=== PATIENT | female | born 1950 | race Caucasian/White ===

== ENCOUNTER 2021-04-16 06:53 | Day surgery (SDC) | payer BC, MEDICARE ==
[~2021-04-16 06:53] MED LIST: Sodium Chloride 0.9% 10 ML Syringe FLUSH PRN
[2021-04-16] MEDS ORDERED: Propofol 200 MG/20 ML SDV IV ONE (06:54)
[2021-04-16] MEDS ORDERED: Lidocaine 2% 5 ML SDV INJECT ONE (06:54)
[2021-04-16] MEDS: Lactated Ringers 1,000 ML IV SCH (07:30)
--- NOTE | 2021-04-16 08:40 | PCM.HPR ---
H & P Addendum review - H & P Addendum Review Date of Original H & P: 04/09/21 Date Reviewed: 04/16/21 Time Reviewed: 07:50 Patient was Examined: No Changes
--- NOTE | 2021-04-16 08:42 | PCM.OPNOTE ---
- General Post-Op/Procedure Note Date of Surgery/Procedure: 04/16/21 Operative Procedure(s): EGD with Bx. Colonoscopy with bx Findings: Distal Esophagitis Pre Op Diagnosis: Abd pain, diarrhea Post-Op Diagnosis: Same Anesthesia Technique: MAC Primary Surgeon: Kevin Ba Anesthesia Provider: April Lau Complications: None Condition: Good
--- NOTE | 2021-04-16 11:13 | OR ---
DATE OF OPERATION: 04/16/2021 SURGEON: Kevin Ba MD PREOPERATIVE DIAGNOSES: 1. Epigastric abdominal pain. 2. Change in bowel habits with diarrhea. POSTOPERATIVE DIAGNOSES: 1. Distal esophagitis. 2. Normal colonoscopy. PROCEDURES: 1. Esophagogastroduodenoscopy with biopsies. 2. Colonoscopy with biopsies. ANESTHESIA: IV sedation. DESCRIPTION OF PROCEDURE: The patient was brought to the procedure room where she was placed on her left side and IV sedation administered. Oral bite block was placed and the upper endoscope advanced into the esophagus under direct vision without difficulty. Vocal cords were viewed and were normal. Scope was advanced to the third portion of the duodenum. Duodenum and pylorus were normal. Antrum and body of the stomach were normal. Retroflexion reveals a normal-appearing fundus. Squamocolumnar junction is irregular with evidence of distal esophagitis with some superficial erosions. The lower esophageal sphincter is weak which is contributing to her reflux. I did take 4-quadrant biopsies from the first portion of the duodenum to check for celiac disease. Because of her symptoms, I also took 2 biopsies from the antrum. Lastly, I took biopsies from the distal esophagus. Air was removed from the stomach and the scope withdrawn through the remaining esophagus which appeared normal. The patient tolerated this portion of the procedure well. Next, colonoscopy was performed after digital rectal exam was done which was normal. Colonoscope was inserted and advanced to the level of the cecum with minimal difficulty getting around the hepatic flexure requiring some pressure on the abdomen. I was able to reach the cecum which was confirmed by identifying the appendiceal lumen and ileocecal valve. Prep was good and surfaces were well visualized. Upon withdrawing the scope, all segments of the colon and rectum appeared normal. There was no evidence of colitis or other abnormalities. I did take random biopsies from all segments of the colon to check for microscopic colitis. Air was removed and the scope withdrawn. The patient tolerated the procedure well and returned to recovery in stable condition. The patient will follow up with Mary Emery for review of biopsies and ongoing care. /[id number] MICHELLE/CLAUDIA
== END 2021-04-16 09:38 | disposition home or self-care (01) ==
LOC: FB.SDS 06:53
PROVIDERS: ATTEND Surgery
DX: R19.4 Change in bowel habit (principal); R19.7 Diarrhea, unspecified; K20.90 Esophagitis, unspecified without bleeding; K29.50 Unspecified chronic gastritis without bleeding; I10 Essential (primary) hypertension; Z88.2 Allergy status to sulfonamides; Z88.8 Allergy status to other drugs, medicaments and biological substances; Z91.048 Other nonmedicinal substance allergy status; Z79.899 Other long term (current) drug therapy; Z20.822 Contact with and (suspected) exposure to COVID-19
CPT/HCPCS: 00813; 43239; 45380; 88305; 88313; 88342; J2704; J7120